=== PATIENT | male | born 1985 | race Two or more races ===

== ENCOUNTER 2021-01-08 00:58 | Emergency (ER) | payer OTHER ==
[~2021-01-08] VITALS: Ht 167.6 cm; Wt 70.3 kg
[2021-01-08 01:02] VITALS: BP 129/70
--- NOTE | 2021-01-08 02:14 | NUR ---
pATIENT DENIES SUICIDAL IDEATION AND HOMICIDAL INTENT
--- NOTE | 2021-01-08 02:16 | NUR ---
Patient discharged to home in stable condition. Written and verbal after care instructions given. Patient verbalizes understanding of instruction.
== END 2021-01-08 02:36 | disposition home or self-care (01) ==
LOC: ER 01:00
DX: F15.10 Other stimulant abuse, uncomplicated (principal)